=== PATIENT | male | born 1965 | race African-American/Black ===

== ENCOUNTER 2025-01-31 19:39 | Emergency (ER) | payer MEDICAID ==
[~2025-01-31] VITALS: Ht 167.6 cm; Wt 77.0 kg
[~2025-01-31 19:39] MED LIST: ACET-2708 MT; AMOX1TAB16 MT; BO1 TP
[2025-01-31 20:04] VITALS: O2SAT 99
[2025-01-31 20:17] VITALS: BP 112/83; PULSE 79; RESP 16; TEMP 36.6; O2SAT 99
== END 2025-01-31 22:34 | disposition left against medical advice (07) ==
LOC: ER 19:39
DX: Z04.89 Encounter for examination and observation for other specified reasons (principal); Z53.21 Procedure and treatment not carried out due to patient leaving prior to being seen by health care provider